=== PATIENT | male | born 1985 ===

== ENCOUNTER 2017-09-28 14:46 | Emergency (ER) | payer SELFPAY ==
[2017-09-28 15:10] VITALS: TEMP 98.4; O2SAT 98
--- NOTE | 2017-09-28 16:00 | C.PDOC ---
History Of Present Illness 32 y/o male presents to the ER complaining of chest pain which began today. Patient states that he had chest pain after he vomited. He notes that he had 5- 6 episodes of vomiting. Patient denies having fever, chills, SOB, and diarrhea. Time Seen by Provider: 09/28/17 15:40 Chief Complaint (Nursing): Chest Pain History Per: Patient History/Exam Limitations: no limitations Onset/Duration Of Symptoms: Hrs Current Symptoms Are (Timing): Still Present Severity: Moderate Past Medical History Reviewed: Historical Data, Nursing Documentation, Vital Signs Vital Signs: Last Vital Signs Temp 98.4 F 09/28/17 17:28 Pulse 74 09/28/17 17:28 Resp 16 09/28/17 17:28 BP 116/69 09/28/17 17:28 Pulse Ox 98 09/28/17 17:46 - Medical History PMH: No Chronic Diseases Surgical History: No Surg Hx Family History: States: No Known Family Hx - Social History Hx Alcohol Use: Yes Hx Substance Use: No - Immunization History Hx Tetanus Toxoid Vaccination: No Hx Influenza Vaccination: No Hx Pneumococcal Vaccination: No Review Of Systems Except As Marked, All Systems Reviewed And Found Negative. Cardiovascular: Positive for: Chest Pain (after vomiting) Respiratory: Negative for: Shortness of Breath Gastrointestinal: Positive for: Nausea, Vomiting Physical Exam - Physical Exam Appears: Non-toxic, No Acute Distress Skin: Normal Color, Warm Head: Atraumatic, Normacephalic Eye(s): bilateral: Normal Inspection Nose: Normal Oral Mucosa: Moist Neck: Supple Chest: Symmetrical Cardiovascular: Rhythm Regular Respiratory: Normal Breath Sounds, No Rales, No Rhonchi, No Wheezing Gastrointestinal/Abdominal: Normal Exam, Soft, No Tenderness Back: Normal Inspection, No CVA Tenderness Neurological/Psych: Oriented x3, Normal Speech ED Course And Treatment - Laboratory Results Result Diagrams: 09/28/17 16:25 09/28/17 16:25 ECG: Interpreted By Me, Viewed By Me Interpretation Of ECG: NSR with incomplete RBBB and no ST/ T -wave abnormalities Rate From EC O2 Sat by Pulse Oximetry: 98 (RA) - Radiology CXR: Interpreted by Me, Viewed By Me CXR Interpretation: Yes: No Acute Disease Medical Decision Making Medical Decision Making: Assessment: Vomiting/Chest Pain Plan: --Labs --EKG --UA --CXR --Pepcid IV --Toradol IV --Zofran IV Disposition Counseled Patient/Family Regarding: Studies Performed, Diagnosis, Need For Followup, Rx Given - Disposition Referrals: [facility] [Outside] Disposition: HOME/ ROUTINE Disposition Time: 17:47 Condition: STABLE Additional Instructions: follow up with your doctor in 2 days call to make an appointment take medications as needed for pain return to ER if symptoms worsens or progress Prescriptions: Famotidine [Pepcid] 20 mg PO BID #20 tab Naproxen [Naprosyn] 500 mg PO BID PRN #16 tab PRN Reason: Pain, Moderate (4-7) Ondansetron ODT [Zofran ODT] 4 mg PO TID PRN #12 odt PRN Reason: Nausea/Vomiting Instructions: Acute Abdomen (Belly Pain), Adult (DC), Costochondritis (DC) Forms: Gen Discharge Inst English, [employer] (English), Work Excuse Print Language: ENGLISH - Clinical Impression Clinical Impression: Abdominal pain, Chest wall pain - Scribe Statement The provider has reviewed the documentation as recorded by the Aime Tucker Provider Attestation: All medical record entries made by the Aime were at my direction and personally dictated by me. I have reviewed the chart and agree that the record accurately reflects my personal performance of the history, physical exam, medical decision making, and the department course for this patient. I have also personally directed, reviewed, and agree with the discharge instructions and disposition.
[2017-09-28 16:28] LABS: BASO % 0.2 % (0.0-2.0); EOS % 0.2 % (0.0-4.0); HEMOGLOBIN 15.9 g/dL (12.0-18.0); LYMPH # 1.2 K/uL (1.0-4.3); LYMPH % 12.2 % (20.0-40.0); MEAN CORPUSCULAR HEMOGLOBIN 30.4 pg (27.0-31.0); MEAN CORPUSCULAR HGB CONC 34.9 g/dL (33.0-37.0); MEAN PLATELET VOLUME 7.7 fL (7.2-11.7); MONO # 0.5 K/uL (0.0-0.8); MONO % 4.8 % (0.0-10.0); NEUT # 7.9 K/uL (1.8-7.0); NEUT % 82.6 % (50.0-75.0); RBC 5.24 Mil/uL (4.40-5.90); RED CELL DISTRIBUTION WIDTH 13.5 % (11.5-14.5); WHITE BLOOD COUNT 9.6 K/uL (4.8-10.8)
[2017-09-28 16:31] LABS: SQUAMOUS EPITHIAL < 1 /hpf (0-5); URINE BILIRUBIN NEGATIVE (NEGATIVE); URINE BLOOD NEGATIVE (NEGATIVE); URINE CLARITY Clear (Clear); URINE COLOR Straw (YELLOW); URINE GLUCOSE (UA) NORMAL (Normal); URINE LEUKOCYTE ESTERASE NEG Leu/uL (Negative); URINE PROTEIN NEGATIVE (NEGATIVE); URINE UROBILINOGEN NORMAL mg/dL (0.2-1.0)
[2017-09-28 16:42] LABS: ALB/GLOB RATIO 1.3 (1.0-2.1); ALBUMIN 4.6 g/dL (3.5-5.0); ALT/SGPT 32 U/L (21-72); AST/SGOT 52 U/L (17-59); BLOOD UREA NITROGEN 12 mg/dL (9-20); CALCIUM 9.3 mg/dl (8.6-10.4); GFR AFRICAN-AMERICAN > 60; GFR NON-AFRICAN AMERICAN > 60; LIPASE 45 U/L (23-300)
[2017-09-28 17:29] VITALS: BP 116/69; PULSE 74; RESP 16
--- NOTE | 2017-09-29 21:50 | CARD ---
APPROVED REPORT EKG Measurement Heart [id number] <Conclusion> Normal sinus rhythm with sinus arrhythmia Incomplete right bundle branch block Borderline ECG
== END 2017-09-28 18:00 | disposition home or self-care (01) ==
LOC: C.ER 14:46
DX: R10.9 Unspecified abdominal pain (principal); R07.89 Other chest pain
CPT/HCPCS: 71046; 80053; 81001; 83690; 85025; 93005; 96374; 96375; 99285; J1885; J2405